=== PATIENT | female | born 1930 | race Caucasian/White ===

== ENCOUNTER 2016-09-18 09:41 | Emergency (ER) | payer OTHER ==
--- NOTE | ~2016-09-18 | CR181 ---
[facility] A Service of [facility] RADIOLOGY TEXT RESULTS PATIENT: LON GILMORE LOCATION: [facility] : 28 UNIT #: [id number] AGE: [address]: Mac Mcdaniels MD SEX: F ORDER DR: [id number] [facility] [address] [place], [place] [address] [id number] E MR#: [id number] Acc #: [id number] NAME: LON GILMORE : 1930 SEX: F STUDY DATE/TIME: 09/18/2016 11:42 UNIT: [facility] ROOM: STUDY DESCRIPTION: CR Lumbar Spine 2 or 3 Views Attending Physician: Mac Mcdaniels M.D. Ordering Physician: Mac Mcdaniels M.D. Primary Care Physician: Zheng Gomez M.D. MEDICAL IMAGING REPORT This report is preliminary unless electronic signature is present EXAM Lumbar spine, [address] abdomen and pelvis dated June 06, 2016. INDICATION 86-year-old female with chronic low back pain worsening today. No known trauma. FINDINGS There is grossly stable severe levoscoliosis of the lumbar spine with rotatory component. Prominent costal cartilage calcifications are noted over the upper abdomen bilaterally. There is stable lateral listhesis of L4 on L5 to the left. There are multilevel degenerative disc and endplate changes of the lumbar spine with multilevel degenerative facet disease. No convincing evidence of acute fracture of the lumbar spine. Evaluation for fracture is limited on the lateral view due to the patient's scoliosis. IMPRESSION 1. No acute fracture or acute subluxation of the lumbar spine. 2. Stable severe scoliosis with associated moderate degenerative changes including left lateral listhesis of L4 on L5. 3. Diffuse arterial calcification in the abdomen and pelvis. Dictated by... Jony Rm M.D. THIS IS AN ELECTRONICALLY VERIFIED REPORT Jony Rm M.D. at 09/26/2016 8:02 AM CARLOS/maura [facility] A Service of [facility] RADIOLOGY TEXT RESULTS PATIENT: LON GILMORE [facility]: [id number] : 29 UNIT #: [id number] AGE: [address]: Mac Mcdaniels MD SEX: F ORDER DR: TD: 09/18/2016 12:43 JOB #: [id number] MEDICAL IMAGING REPORT Page 1 of 1 COPY
--- NOTE | ~2016-09-18 | CR243 ---
[facility] A Service of [facility] RADIOLOGY TEXT RESULTS PATIENT: LON GILMORE LOCATION: [facility] UN[facility] : 29 UNIT #: [id number] AGE: [address]: Mac Mcdaniels MD SEX: F ORDER DR: [id number] [facility] [address] [place], [place] [address] [id number] E MR#: [id number] Acc #: [id number] NAME: LON GILMORE : 1930 SEX: F STUDY DATE/TIME: 09/18/2016 11:41 UNIT: [facility] ROOM: STUDY DESCRIPTION: CR Thoracic Spine 3 Views Attending Physician: Mac Mcdaniels M.D. Ordering Physician: Mac Mcdaniels M.D. Primary Care Physician: Zheng Gomez M.D. MEDICAL IMAGING REPORT This report is preliminary unless electronic signature is present EXAM Thoracic spine 3 views INDICATION Chronic back pain worse since yesterday. COMPARISON Thoracic spine x-ray from 02/06/2015 FINDINGS Stable scoliosis. Stable chronic-appearing mid thoracic spine compression deformities. Multilevel degenerative disc space narrowing. IMPRESSION Stable scoliosis with chronic-appearing mid thoracic spine compression deformity. Dictated by... Tyler Pirere M.D. THIS IS AN ELECTRONICALLY VERIFIED REPORT Tyler Pierre M.D. at 09/19/2016 12:35 PM Dario TD: 09/18/2016 12:36 JOB #: [id number] MEDICAL IMAGING REPORT Page 1 of 1 COPY
[~2016-09-18 09:41] MED LIST: ACETAMINOPHEN500 M3 PO; AMITRYPTYLINE; ASPIRIN PO; BACLOFEN10 MG; BENZONATATE; BONIVA150 MG PO; CALCIUM 500 + D1 TAB PO; CITRACAL200 MG; CITRACAL200 MG PO; COLACE PO; COREG PO; FOSAMAX; HCTZ; HYDROCODONE-APA1 T33; HYDROCODONE-APA1 T33 PO; HYDROXYZINE HCL25 M1 PO; IBUPROFEN; KETOPROFEN PO; LESCOL XL80 MG; LISINOPRIL PO; LYRICA; LYRICA PO; MOBIC; NEURONTIN; NORVASC; PHENERGAN; PRILOSEC PO; STOOL SOFTENER250 MG; SYNTHROID; SYNTHROID PO; TRIAMCINOLONE A15 G6 EXT; VITAMIN B12-FO1 EACH; VITAMIN B12-FO1 EACH PO; ZITHROMAX PO; ZOCOR PO; [UNRECOGNIZED DRUG - REMARK]
== END 2016-09-18 13:00 | disposition home or self-care (01) ==
LOC: CED 09:41
DX: M54.5 Low back pain (principal); G89.29 Other chronic pain; Z88.8 Allergy status to other drugs, medicaments and biological substances
CPT/HCPCS: 72072; 72100; 99284